=== PATIENT | female | born 1990 ===

== ENCOUNTER 2019-10-06 13:40 | Inpatient (IN) | payer BC, OTHER ==
[2019-10-12] MEDS ORDERED: Ondansetron PF 4 MG/2 ML Vial IVP PRN (22:10)
[2019-10-12] MEDS ORDERED: Lidocaine 1% (PF) 30 ML VIAL SC PRN (22:10)
[2019-10-12] MEDS ORDERED: Butorphanol Tartrate 1 MG/ML VIAL SLOW IVP PRN (22:10)
[2019-10-12] MEDS ORDERED: Ibuprofen 800 MG TAB PO PRN (22:10)
[2019-10-12] MEDS ORDERED: Diphenoxylate HCl/Atropine Tablet PO PRN ×2 (22:10)
[2019-10-12] MEDS ORDERED: NS w/ Oxytocin 10 units 500 ML IV SCH ×2 (22:10)
[2019-10-12] MEDS ORDERED: HYDROcodone/Acetaminophen 5/325 mg Tablet PO PRN ×2 (22:10)
[2019-10-12] MEDS ORDERED: Promethazine HCl 25 MG/ML VIAL IM PRN (22:10)
[2019-10-12] MEDS ORDERED: Misoprostol 200 MCG TAB PR PRN (22:10)
[2019-10-12] MEDS ORDERED: NS / Oxytocin 40 units/1000ml 1,000 ML IV PRN (22:10)
[2019-10-12] MEDS ORDERED: Acetaminophen 500 MG TAB PO PRN (22:10)
[2019-10-12] MEDS ORDERED: Zolpidem Tartrate 5 MG TAB PO PRN (22:10)
[2019-10-12] MEDS ORDERED: Docusate 100 MG CAP PO PRN (22:10)
[2019-10-12] MEDS ORDERED: hydrALAZINE 20 MG/ML VIAL SLOW IVP PRN (22:10)
[2019-10-12 23:21] VITALS: BMI 45.2
[2019-10-12] MEDS: Misoprostol 100 MCG TAB VAG SCH (23:29)
[2019-10-12 23:47] LABS: Hemoglobin 12.8 g/dL (12.0-16.0); Mean Corpuscular HGB CONC 35.9 g/dL (32.0-36.0); Mean Corpuscular Hemoglobin 32.1 pg (27.0-31.0); Mean Corpuscular Volume 89.6 fL (78.0-98.0); Mean Platelet Volume 8.3 fL (7.4-10.4); Platelet Count 230 thou/uL (130-400); Red Blood Cell (RBC) Count 3.98 mill/uL (4.20-5.40); White Blood Cell (WBC) Count 7.7 thou/uL (4.8-10.8)
[2019-10-13 00:25] LABS: Syphilis Antibody Nonreactive (Nonreactive); Syphilis Antibody Index 0.04 S/CO (<1.00 Non-Reactive)
[2019-10-13 00:26] LABS: HBSAg Index 0.17 S/CO (0-0.99); Hep B Surf Ag Non-Reactive S/CO (NonReactive)
[2019-10-13] MEDS: Misoprostol 100 MCG TAB VAG SCH (02:27)
[2019-10-13] MEDS: Lactated Ringer's 1,000 ML IV SCH ×2 (04:35→12:20)
[2019-10-13] MEDS ORDERED: Fentanyl 4 mcg/Bup 0.1% Cadd 100 ML ONE (10:52)
[2019-10-13] MEDS ORDERED: Zolpidem Tartrate 5 MG TAB PO PRN (18:53)
[2019-10-13] MEDS ORDERED: Adacel (T-DAP) 0.5 ML SYRINGE IM ONE (18:53)
[2019-10-13] MEDS ORDERED: Bisacodyl 10 MG SUPP PR PRN (18:53)
[2019-10-13] MEDS ORDERED: hydrALAZINE 20 MG/ML VIAL SLOW IVP PRN (18:53)
[2019-10-13] MEDS ORDERED: Benzocaine-Menthol 82.5 ML CAN TOP PRN (18:53)
[2019-10-13] MEDS ORDERED: Ondansetron PF 4 MG/2 ML Vial IVP PRN (18:53)
[2019-10-13] MEDS ORDERED: HYDROcodone/Acetaminophen 5/325 mg Tablet PO PRN (18:53)
[2019-10-13] MEDS ORDERED: Milk Of Magnesia 30 ML UDCUP PO PRN (18:53)
[2019-10-13] MEDS ORDERED: Lanolin Ointment 7 GM TUBE TOP PRN (18:53)
[2019-10-13] MEDS ORDERED: Preparation H Ointment 28 GM TUBE PR PRN (18:53)
[2019-10-13] MEDS ORDERED: diphenhydrAMINE 25 MG CAP PO PRN (18:53)
[2019-10-13] MEDS ORDERED: Misoprostol 200 MCG TAB VAG PRN (18:53)
[2019-10-13] MEDS ORDERED: NS / Oxytocin 40 units/1000ml 1,000 ML IV SCH (19:00)
[2019-10-13] MEDS: Ibuprofen 800 MG TAB PO SCH (20:23)
[2019-10-14] MEDS: Docusate Calcium (SURFAK) 240 MG CAP PO SCH ×4 (02:31→21:18)
[2019-10-14] MEDS: Ibuprofen 800 MG TAB PO SCH ×3 (03:38→21:18)
[2019-10-14] MEDS: HYDROcodone/Acetaminophen 5/325 mg Tablet PO PRN ×3 (05:41→21:18)
[2019-10-14] MEDS: Ferrous Sulfate 325 MG TAB PO SCH ×2 (08:25→15:48)
[2019-10-14] MEDS: Prenatal Vitamin 1 TAB PO SCH (11:31)
[2019-10-14] MEDS: Misoprostol 100 MCG TAB VAG SCH ×2 (19:10→19:11)
[2019-10-14] MEDS: Lactated Ringer's 1,000 ML IV SCH (19:12)
[2019-10-14 20:07] VITALS: TEMP 97.7
[2019-10-15] MEDS: Ibuprofen 800 MG TAB PO SCH ×2 (06:26→13:36)
[2019-10-15] MEDS: HYDROcodone/Acetaminophen 5/325 mg Tablet PO PRN ×2 (06:28→10:57)
[2019-10-15 08:37] VITALS: BP 110/61
[2019-10-15] MEDS: Ferrous Sulfate 325 MG TAB PO SCH (08:49)
[2019-10-15] MEDS: Prenatal Vitamin 1 TAB PO SCH (08:50)
[2019-10-15] MEDS: Docusate Calcium (SURFAK) 240 MG CAP PO SCH (08:50)
== END 2019-10-15 14:00 | disposition home or self-care (01) | DRG 807 ==
LOC: EDSTATUS 10-12 16:16 → L&D 10-12 22:09 → 3SW 10-13 21:55
PROVIDERS: ADMIT Obstetrics & Gynecology; ATTEND Obstetrics & Gynecology
PROC: 10E0XZZ Delivery of Products of Conception, External Approach (ICD-10-PCS; principal; 2019-10-13)
PROC: 0KQM0ZZ Repair Perineum Muscle, Open Approach (ICD-10-PCS; 2019-10-13)
PROC: 10907ZC Drainage of Amniotic Fluid, Therapeutic from Products of Conception, Via Natural or Artificial Opening (ICD-10-PCS; 2019-10-13)
PROC: 3E033VJ Introduction of Other Hormone into Peripheral Vein, Percutaneous Approach (ICD-10-PCS; 2019-10-13)
PROC: 3E0P7VZ Introduction of Hormone into Female Reproductive, Via Natural or Artificial Opening (ICD-10-PCS; 2019-10-13)
PROC: 0W8NXZZ Division of Female Perineum, External Approach (ICD-10-PCS; 2019-10-13)
DX: O76 Abnormality in fetal heart rate and rhythm complicating labor and delivery (principal); Z37.0 Single live birth; Z3A.39 39 weeks gestation of pregnancy; O70.1 Second degree perineal laceration during delivery; O99.344 Other mental disorders complicating childbirth; F32.9 Major depressive disorder, single episode, unspecified; F41.9 Anxiety disorder, unspecified
CPT/HCPCS: 36415; 51702; 85027; 85461; 86780; 86850; 86900; 86901; 87340; 90384; 96372; J2590